=== PATIENT | female | born 1990 | race Caucasian/White ===

== ENCOUNTER 2021-08-31 03:10 | Emergency (ER) | payer SELFPAY ==
[2021-08-31] MEDS ORDERED: FLUORESCEIN 1 MG STRIP OP ONE (05:29)
[2021-08-31] MEDS ORDERED: TETRACAINE 0.5% OPHTH SOLN 4ML OU PRN (05:29)
[2021-08-31] MEDS ORDERED: IBUPROFEN 600 MG TAB PO ONE (05:30)
--- NOTE | 2021-08-31 06:01 | Emergency Department Report ---
ED Eye Problem HPI - General Chief complaint: Eye Problems Stated complaint: CONTACTS STUCK ON EYES Source: patient Mode of arrival: Ambulatory Limitations: No Limitations - History of Present Illness Initial comments: Patient is a 31-year-old female with no past medical history who presents to the ED with complaint of bilateral eye pain after she removed contact lens from her right eye, resulting in more severe pain in the right eye 3 hours ago. Patient states that the right eye is more painful than the left. Patient denies vision loss, dizziness, syncope, fall, headache, nasal and sinus congestion or itching. Patient states that she is up-to-date with her tetanus vaccination. MD chief complaint: eye pain (Bilateral eye pain and right more than left), eye redness, eye injury (Contact Lence injury of the right eye) -: Sudden, hour(s) (3) Onset Description: sudden Location: right eye, left eye, both eyes Place: home If Injury: other (Contact lens injury) Eye Symptoms: burning, redness, pain, foreign body sensation, discharge, photophobia Severity: moderate Severity scale (0 -10): 6 If Pain, Quality: sharp, burning, throbbing Consistency: constant Context: contact lens use Associated Symptoms: none. denies: headache, neck pain, nausea/vomiting, cough, rhinorrhea, fever, shortness of breath Treatments Prior to Arrival: none - Related Data Patient Tetanus UTD: Yes Previous Rx's Medication Instructions Recorded Last Taken Type Ibuprofen [Motrin] 800 mg PO Q8HR PRN #30 tablet 08/31/21 Unknown Rx Tobramycin 0.3% [Tobrex] 1 drop OP Q8HR #5 ml 08/31/21 Unknown Rx Allergies Allergy/AdvReac Type Severity Reaction Status Date / Time No Known Allergies Allergy Unverified 08/31/21 04:26 ED Review of Systems ROS: Stated complaint: CONTACTS STUCK ON EYES Other details as noted in HPI Constitutional: denies: chills, fever Eyes: eye pain (Bilateral eye pain right greater than left), eye discharge ( right eye), other (Contact lens injury.). denies: vision change ENT: denies: ear pain, throat pain Respiratory: denies: cough, shortness of breath, wheezing Cardiovascular: denies: chest pain, palpitations Endocrine: no symptoms reported Gastrointestinal: denies: abdominal pain, nausea, diarrhea Genitourinary: denies: urgency, dysuria, discharge Musculoskeletal: denies: back pain, joint swelling, arthralgia Skin: denies: rash, lesions Neurological: denies: headache, weakness, paresthesias Psychiatric: denies: anxiety, depression Hematological/Lymphatic: denies: easy bleeding, easy bruising ED Past Medical Hx - Past Medical History Previous Medical History?: No - Surgical History Past Surgical History?: No - Social History Smoking Status: Current Every Day Smoker Substance Use Type: None - Medications Home Medications: Home Medications Medication Instructions Recorded Confirmed Last Taken Type Ibuprofen [Motrin] 800 mg PO Q8HR PRN #30 tablet 08/31/21 Unknown Rx Tobramycin 0.3% [Tobrex] 1 drop OP Q8HR #5 ml 08/31/21 Unknown Rx ED Physical Exam - General Limitations: No Limitations General appearance: alert, in no apparent distress - Head Head exam: Present: atraumatic, normocephalic, normal inspection - Eye Eye exam: Present: normal appearance, PERRL, EOMI, other (Mild erythematous space bilateral conjunctiva; anterior right conjunctival and corneal abrasion through Cole lamp evaluation with fluorescein dye) Pupils: Present: normal accommodation - ENT ENT exam: Present: normal exam, normal orophraynx, mucous membranes moist, TM's normal bilaterally, normal external ear exam - Neck Neck exam: Present: normal inspection, full ROM. Absent: tenderness - Respiratory Respiratory exam: Present: normal lung sounds bilaterally. Absent: respiratory distress, wheezes, rales, rhonchi, stridor, chest wall tenderness, accessory muscle use, decreased breath sounds, prolonged expiratory - Cardiovascular Cardiovascular Exam: Present: regular rate, normal rhythm, normal heart sounds. Absent: systolic murmur, diastolic murmur, rubs, gallop - GI/Abdominal GI/Abdominal exam: Present: soft, normal bowel sounds. Absent: tenderness, guarding, rebound, hyperactive bowel sounds, hypoactive bowel sounds, organomegaly, mass - Extremities Exam Extremities exam: Present: normal inspection, full ROM, normal capillary refill. Absent: tenderness - Back Exam Back exam: Present: normal inspection, full ROM. Absent: tenderness, CVA tenderness (R), CVA tenderness (L), muscle spasm, paraspinal tenderness, verte bral tenderness - Neurological Exam Neurological exam: Present: alert, oriented X3, CN II-XII intact, normal gait, reflexes normal - Psychiatric Psychiatric exam: Present: normal affect, normal mood - Skin Skin exam: Present: warm, dry, intact, normal color. Absent: rash ED Medical Decision Making - Medical Decision Making This is a 31-year-old female with no past medical history who presents to the ED with complaint of bilateral eye pain after she removed contact lens from her right eye, resulting in more severe pain in the right eye 3 hours ago. Patient states that the right eye is more painful than the left. In the ED, patient is alert and oriented x3 and is not in any distress. Cole lamp exam of the bilateral eyes showed anterior right conjunctival and corneal abrasions and unremarkable left eye exam when fluorescein dye is used. Tetracaine eyedrops were applied to both eyes for pain control. Patient was thereafter discharged home on pain medications and antibiotic eyedrops and advised to follow-up with her primary care physician in 7 to 10 days for reevaluation. Patient was advised to follow-up with on ccnp Dr. Neves in 5 to 7 days for reevaluation. Patient advised return to the ED immediately if symptoms get worse. - Differential Diagnosis Corneal abrasion; conjunctival abrasion; contact lens injury; eye injury Critical care attestation.: If time is entered above; I have spent that time in minutes in the direct care of this critically ill patient, excluding procedure time. ED Disposition Clinical Impression: Corneal injury of both eyes due to contact lens Injury of right conjunctiva and corneal abrasion Qualifiers: Encounter type: initial encounter Qualified Code(s): S05.01XA - Injury of conjunctiva and corneal abrasion without foreign body, right eye, initial encounter Disposition: HOME / SELF CARE / HOMELESS Is pt being admited?: No Does the pt Need Aspirin: No Condition: Stable Instructions: Corneal Abrasion, [id number] Additional Instructions: Take medication with food, drink plenty of fluids and follow-up with the ccnp Dr. Neves in 5 to 7 days for reevaluation. Return to the ED immediately if symptoms get worse. Consider following up with your primary care physician in 7 to 10 days for reevaluation. Prescriptions: Ibuprofen [Motrin] 800 mg PO Q8HR PRN #30 tablet PRN Reason: Pain , Severe (7-10) Tobramycin 0.3% [Tobrex] 1 drop OP Q8HR #5 ml Referrals: JEAN CLAUDE NEVES MD [Staff Physician] - 3-5 Days Forms: Work/School Release Form(ED) Time of Disposition: 06:04 Print Language: SERBIAN
[2021-08-31 07:19] VITALS: BP 130/82
== END 2021-08-31 07:12 | disposition home or self-care (01) ==
LOC: ED 03:10
DX: H18.823 Corneal disorder due to contact lens, bilateral (principal); F17.200 Nicotine dependence, unspecified, uncomplicated
CPT/HCPCS: 99283